=== PATIENT | male | born 1975 | race African-American/Black ===

== ENCOUNTER 2019-07-21 16:05 | Inpatient (IN) | payer MEDICAID ==
[~2019-07-21] VITALS: Ht 175.3 cm; Wt 78.6 kg
[2019-07-21 16:05] VITALS: BP 148/75
[2019-07-21] MEDS ORDERED: levETIRAcetam 500 MG in D5W 110 ML IV ONE (16:30)
[2019-07-21] MEDS ORDERED: LORazepam Inj 2mg/ml 1ml IV ONE (16:30)
--- NOTE | 2019-07-21 16:42 | Emergency Room Report ---
History of Present Illness General Chief Complaint: seizure Source: EMS Present Illness HPI Middle-aged unidentified male presents ED for evaluation. Per EMS patient had a witnessed seizure. Occurred on the bus today lasted for about 10 seconds. Witnessed. No tongue trauma. No incontinence. Upon arrival patient had another seizure witnessed by nursing. Patient is postictal and nonverbal on arrival. Patient has no identification. Unable to determine whether patient does have seizure history. No other aggravating relieving factors. No other associated symptoms Allergies: Coded Allergies: UNABLE TO ASSESS (Unverified , 07/21/19) Patient History Limited by: other Past Medical History: none Past Surgical History: none, unable to obtain Pertinent Family History: unable to obtain Social History: Denies: smoking, alcohol use, drug use Immunizations: other Reviewed Nursing Documentation: PMH: Agreed; PSxH: Agreed Nursing Documentation-PMH Past Medical History Deferred: Patient Unconscious Review of Systems All Other Systems: limited Physical Exam Vital Signs Date Time Temp Pulse Resp B/P (MAP) Pulse Ox O2 Delivery O2 Flow Rate FiO2 07/21/19 16:05 119 26 148/75 94 Non-Rebreather 10.0 Sp02 EP Interpretation: reviewed, normal General Appearance: lethargic, Postictal Head: normocephalic ENT: normal ENT inspection Neck: normal inspection Respiratory: chest non-tender, lungs clear, normal breath sounds, speaking full sentences Cardiovascular #1: tachycardia Gastrointestinal: normal inspection, no organomegaly Rectal: deferred Genitourinary: no CVA tenderness Musculoskeletal: normal inspection Neurologic: other - postictal Psychiatric: other - postictal Skin: other - see nrusing notes Lymphatic: normal inspection Medical Decision Making Diagnostic Impression: Primary Impression: Seizure Additional Impressions: Altered mental status Qualified Codes: R41.82 - Altered mental status, unspecified Substance abuse Renal insufficiency ER Course Hospital Course 62 something year old unidientifed male presents to ED status post seizure. Differential diagnosis includes- breakthrough seizure, alcohol abuse, noncompliance with medication Clinical course Patient placed on stretcher. Initial history and physical I ordered labs, IV fluids, EKG, ativan, CT brain Labs- no leukocytosis, hb/hct stable, Cr 1.5, ETOH< 3, UDS + cocaine EKG - NSR no acute ischemic changes interpreted by me CT Brain no acute process patient has no identification. Unclear whether patient does have an actual seizure history or this is related to substance abuse. Remains altered and postictal. Given loading dose of Keppra. Case discussed with Dr. Gregg and he agreed to accept the patient to his service for further care and support. i. I feel this is a highly complex case requiring extensive working including EKG/Rhythm strip, Xray/CT/US, Blood/urine lab work, repeat exams while in ED, and administration of strong opiates/narcotics for pain control, admission to hospital or close patient follow up. Diagnosis - seizure, AMS, substance abuse, renal insuffiicency admitted to telemetry in serious condition Labs Test 07/21/19 16:26 07/21/19 16:30 White Blood Count 7.6 K/UL (4.8-10.8) Red Blood Count 4.91 M/UL (4.70-6.10) Hemoglobin 15.1 G/DL (14.2-18.0) Hematocrit 46.3 % (42.0-52.0) Mean Corpuscular Volume 94 FL (80-99) Mean Corpuscular Hemoglobin 30.7 PG (27.0-31.0) Mean Corpuscular Hemoglobin Concent 32.5 G/DL (32.0-36.0) Red Cell Distribution Width 12.0 % (11.6-14.8) Platelet Count 332 K/UL (150-450) Mean Platelet Volume 6.8 FL (6.5-10.1) Neutrophils (%) (Auto) 62.2 % (45.0-75.0) Lymphocytes (%) (Auto) 23.0 % (20.0-45.0) Monocytes (%) (Auto) 11.4 % (1.0-10.0) Eosinophils (%) (Auto) 1.1 % (0.0-3.0) Basophils (%) (Auto) 2.4 % (0.0-2.0) Sodium Level 140 MMOL/L (136-145) Potassium Level 3.4 MMOL/L (3.5-5.1) Chloride Level 103 MMOL/L (98-107) Carbon Dioxide Level 13 MMOL/L (21-32) Anion Gap 25 mmol/L (5-15) Blood Urea Nitrogen 11 mg/dL (7-18) Creatinine 1.5 MG/DL (0.55-1.30) Estimat Glomerular Filtration Rate 57.8 mL/min (>60) Glucose Level 96 MG/DL (74-106) Calcium Level 9.9 MG/DL (8.5-10.1) Total Bilirubin 0.3 MG/DL (0.2-1.0) Aspartate Amino Transf (AST/SGOT) 33 U/L (15-37) Alanine Aminotransferase (ALT/SGPT) 22 U/L (12-78) Alkaline Phosphatase 136 U/L (46-116) Total Protein 9.4 G/DL (6.4-8.2) Albumin 3.8 G/DL (3.4-5.0) Globulin 5.6 g/dL Albumin/Globulin Ratio 0.7 (1.0-2.7) Salicylates Level 2.6 ug/mL (2.8-20) Acetaminophen Level < 2 MCG/ML (10-30) Phenytoin (Dilantin) Level 1.6 ug/mL (10-20) Valproic Acid (Depakene) Level < 3 MCG/ML (50-100) Carbamazepine (Tegretol) Level < 0.5 ug/mL (4.0-12.0) Phenobarbital Level < 1.0 ug/mL (15-40) Serum Alcohol < 3 mg/dL Urine Color Pale yellow Urine Appearance Clear Urine pH 5 (4.5-8.0) Urine Specific [place] 1.025 (1.005-1.035) Urine Protein 4+ (NEGATIVE) Urine Glucose (UA) Negative (NEGATIVE) Urine Ketones 2+ (NEGATIVE) Urine Blood 4+ (NEGATIVE) Urine Nitrite Negative (NEGATIVE) Urine Bilirubin Negative (NEGATIVE) Urine Urobilinogen Normal MG/DL (0.0-1.0) Urine Leukocyte Esterase Negative (NEGATIVE) Urine RBC 5-10 /HPF (0 - 0) Urine WBC 0-2 /HPF (0 - 0) Urine Squamous Epithelial Cells None /LPF (NONE/OCC) Urine Amorphous Sediment Moderate /LPF (NONE) Urine Bacteria Few /HPF (NONE) Urine Opiates Screen Negative (NEGATIVE) Urine Barbiturates Screen Negative (NEGATIVE) Phencyclidine (PCP) Screen Negative (NEGATIVE) Urine Amphetamines Screen Negative (NEGATIVE) Urine Benzodiazepines Screen Negative (NEGATIVE) Urine Cocaine Screen Positive (NEGATIVE) Urine Marijuana (THC) Screen Negative (NEGATIVE) EKG Diagnostic Results Rate: normal Rhythm: NSR ST Segments: no acute changes ASA given to the pt in ED: No Rhythm Strip Diag. Results EP Interpretation: yes Rhythm: NSR, no PVC's, no ectopy CT/MRI/US Diagnostic Results CT/MRI/US Diagnostic Results : Imaging Test Ordered: CT Head Impression Procedure: CT Head no Contrast Indications: Dizziness and seizures Technique: Spiral acquisitions obtained through the brain. Angled axial and coronal 5 x 5 mm slices were reconstructed. Total dose length product 1406 mGycm. CTDI vol(s) 6 mGy. Dose reduction achieved using automated exposure control Comparison: None. Findings: There is bilateral and anterior and inferior frontal encephalomalacia. There is also bilateral anterior temporal encephalomalacia. No acute intracranial hemorrhage or edema. No mass effect or midline shift. Normal size ventricles and extra axial CSF spaces. Normal doherty-white differentiation. Intact calvarium. Visualized orbits and sinuses are unremarkable. The mastoids are clear Impression: . 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
[2019-07-21 16:50] LABS: APPEARANCE,URINE CLEAR; BILIRUBIN, URINE NEGATIVE (NEGATIVE); COLOR,URINE PALE YELLOW; GLUCOSE, URINE (UA) NEGATIVE (NEGATIVE); KETONES,URINE 2+ (NEGATIVE); LEUKOCYTE ESTERASE ,URINE NEGATIVE (NEGATIVE); NITRITE,URINE NEGATIVE (NEGATIVE); PH,URINE 5 (4.5-8.0); PROTEIN,URINE 4+ (NEGATIVE); UROBILINOGEN,URINE NORMAL MG/DL (0.0-1.0)
[2019-07-21 16:59] LABS: ANION GAP 25 mmol/L (5-15); BLOOD UREA NITROGEN 11 mg/dL (7-18); CALCIUM 9.9 MG/DL (8.5-10.1); CARBON DIOXIDE 13 MMOL/L (21-32); CHLORIDE 103 MMOL/L (98-107); CREATININE 1.5 MG/DL (0.55-1.30); POTASSIUM 3.4 MMOL/L (3.5-5.1); SODIUM 140 MMOL/L (136-145)
--- NOTE | 2019-07-21 17:00 | NUR ---
ED Nurse Note: Pt. brought by RA 61 from bus due to seizure activity. no trauma noted. pt had a sz on the hallway for 10 sec. pt. attached to pvc monitor for continuous monitoring. sz precaution initiated. sz pads applied on both side rails. airway maintained. no trauma noted. pt. is confused/ disoriented. pt.
[2019-07-21 17:06] LABS: ALANINE AMINOTRANSFERASE 22 U/L (12-78); ALBUMIN 3.8 G/DL (3.4-5.0); ALBUMIN/GLOBULIN RATIO 0.7 (1.0-2.7); ALKALINE PHOSPHATASE 136 U/L (46-116); ASPARTATE AMINO TRANSFERASE 33 U/L (15-37); BILIRUBIN,TOTAL 0.3 MG/DL (0.2-1.0)
[2019-07-21 17:14] LABS: BASOPHILS % (AUTO) 2.4 % (0.0-2.0); EOSINOPHILS % (AUTO) 1.1 % (0.0-3.0); HEMATOCRIT 46.3 % (42.0-52.0); HEMOGLOBIN 15.1 G/DL (14.2-18.0); MEAN CORPUSCULAR VOLUME 94 FL (80-99); MONOCYTES % (AUTO) 11.4 % (1.0-10.0); NEUTROPHILS % (AUTO) 62.2 % (45.0-75.0); PLATELET COUNT 332 K/UL (150-450); RED BLOOD COUNT 4.91 M/UL (4.70-6.10); WHITE BLOOD COUNT 7.6 K/UL (4.8-10.8)
--- NOTE | 2019-07-21 17:15 | NUR ---
ED Nurse Note: pt transported to CT, keppra infusion is finished. pt does not appear to be in acute distress. pt taken on 10L of O2 with a non-rebreather mask
--- NOTE | 2019-07-21 17:34 | Diagnostic Imaging Report ---
Indications: Dizziness and seizures Technique: Spiral acquisitions obtained through the brain. Angled axial and coronal 5 x 5 mm slices were reconstructed. Total dose length product 1406 mGycm. CTDI vol(s) 6 mGy. Dose reduction achieved using automated exposure control Comparison: None. Findings: There is bilateral and anterior and inferior frontal encephalomalacia. There is also bilateral anterior temporal encephalomalacia. No acute intracranial hemorrhage or edema. No mass effect or midline shift. Normal size ventricles and extra axial CSF spaces. Normal doherty-white differentiation. Intact calvarium. Visualized orbits and sinuses are unremarkable. The mastoids are clear Impression: . 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
[2019-07-21 17:59] VITALS: BP 108/67
[2019-07-21] MEDS ORDERED: LORazepam Inj 2mg/ml 1ml IM PRN (18:00)
[2019-07-21] MEDS ORDERED: Phenytoin Susp 100mg/4ml ORAL SCH (18:15)
--- NOTE | 2019-07-21 18:15 | NUR ---
ED Nurse Note: report given to TINA Morrison
--- NOTE | 2019-07-21 18:35 | NUR ---
NURSE NOTES: Patient arrived from ER. Received report from TINA Osman. Patient is asleep, breathing even and unlabored. Patient responds to substernal chest rubs, otherwise asleep. Belonging checklist completed. Seizure precaution initiated. Bed in lowest position, locked, side rials x3 are up. Call light within reach. IV site on left hand patent and intact. applications analyst placed. Will be endorsed to police shift commander nurse.
[2019-07-21 19:01] VITALS: BP 125/75
--- NOTE | 2019-07-21 19:15 | NUR ---
HAND-OFF: Report given to TINA Vasquez and TINA Jolley.
--- NOTE | 2019-07-21 19:17 | NUR ---
NURSE NOTES: Patient asleep, responds to sternal rub and turning, not to voice. Patient's bilateral pupils pinpoint when light shined, 2 mm diameter. Patient unable to answer admission questions. No signs of distress or pain. Vital signs stable. Seizure precautions in place, siderails padded, siderails up x3, and suction at bedside. Skin intact, right scar on knee. Bed in lowest position, brakes on, bed alarm on, fall precautions implemented, and call light within reach. Will continue to monitor.
--- NOTE | 2019-07-21 19:30 | NUR ---
NURSE NOTES: Received patient from TINA Morrison. Patient was asleep in bed, no signs of pain or distress noted. IV site checked, patent and intact. Seizure precautions utilized, siderails padded and suction at bedside. Bed in lowest position, siderails up x2, brakes on, and call light within reach. Will continue with plan of care.
[2019-07-21 20:00] VITALS: BP 125/89
[2019-07-21] MEDS: Enoxaparin 40mg Inj SUBQ SCH (20:00)
--- NOTE | 2019-07-21 20:15 | NUR ---
NURSE NOTES: Endorsed to Dr. Gregg, patient is unable to swallow, asked for oral medications to change to IV. Patient was lethargic, pinpoint pupils, and was able to verbalize when turning. Per Dr. Gregg, will change order.
[2019-07-21] MEDS ORDERED: LORazepam Inj 2mg/ml 1ml IVP PRN (21:00)
--- NOTE | 2019-07-22 03:00 | History and Physical Report ---
DATE OF ADMISSION: 07/21/2019 REASON FOR ADMISSION: 1. Seizure. 2. Substance abuse. HISTORY OF PRESENT ILLNESS: The patient presented to emergency room for evaluation of post seizure. Witnessed. Occurred on the bus today and lasted for approximately 10 seconds. No trauma. The patient does not have any identification and is currently labeled Chuckie Sanders. Noted to be positive for cocaine. ALLERGIES: Unknown. PAST MEDICAL HISTORY: Unknown. SOCIAL HISTORY: Unknown. PAST SURGICAL HISTORY: Unknown. REVIEW OF SYSTEMS: Cannot obtain as the patient is postictal. LABORATORY DATA: Labs dated July 21, 2019, positive for cocaine. Sodium 140, potassium 3.4, creatinine 1.5. Hemoglobin 15.1, white cell count 7.6, and platelet count 332,000. PHYSICAL EXAMINATION: VITAL SIGNS: Blood pressure 125/75, respiratory rate 20, 100% oxygen saturation on room air, temperature 98, and pulse 100. GENERAL: The patient is somnolent, but arousable and agitated when aroused. HEENT: Extraocular muscles intact. No lymphadenopathy noted. CARDIOVASCULAR: S1, S2. No rubs or gallops. PULMONARY: Clear to auscultation bilaterally. No rales, rhonchi, or wheezes. ABDOMINAL: Soft, nontender. EXTREMITIES: No edema noted. ASSESSMENT AND PLAN: 1. Acute kidney injury. Creatinine 1.5 at this time, likely secondary to volume depletion. We will continue IV hydration. Recheck laboratories in the morning. 2. Seizure. The patient is currently postictal. Received antiseizure medications in the emergency room. The patient is somnolent, sleeping comfortably, but arousable. 3. Dehydration. We will continue IV fluids. 4. DVT prophylaxis with SCDs. The patient's seizures are most likely brought on by cocaine. Once cleared by Neurology, we will discharge the patient. Krishna Gregg MD DR: Brent JOB#: [id number] CC:
[2019-07-22 04:00] VITALS: BP 151/86
[2019-07-22 04:56] LABS: ANION GAP 9 mmol/L (5-15); BLOOD UREA NITROGEN 8 mg/dL (7-18); CALCIUM 8.8 MG/DL (8.5-10.1); CARBON DIOXIDE 24 MMOL/L (21-32); CHLORIDE 109 MMOL/L (98-107); CREATININE 0.8 MG/DL (0.55-1.30); POTASSIUM 4.2 MMOL/L (3.5-5.1); SODIUM 142 MMOL/L (136-145)
--- NOTE | 2019-07-22 07:36 | NUR ---
HAND-OFF: Report given to TINA Stephenson. Plan of care endorsed.
--- NOTE | 2019-07-22 07:46 | NUR ---
NURSE NOTES: Pt in bed in low position with bed alarm on, call light next to pt, pt Ox1 but is being resistive to care, IV intact and asymptomatic running NS@125hr, pt uses urinal, pt is at fall risk, hx of substance abuse, homeless, pt denies pain, eating breakfast at bedside, no s/s of distress or sob noted.
[2019-07-22 08:00] VITALS: BP 132/85
--- NOTE | 2019-07-22 08:21 | Nephrology Progress Note ---
Assessment/Plan Assessment/Plan: A/P 1) Seizure- likley due to cocaine - Neuro to evaluate and make reccs on anti sz medication 2) HTN- add norvasc 3) DVT prophylaxsis- lovenox Plan on DC once Neuro cleared and CM/SW addresses place Subjective Date patient seen: Jul 22, 2019 Time patient seen: 08:17 ROS Limited/Unobtainable: No Allergies: Coded Allergies: UNABLE TO ASSESS (Unverified , 07/21/19) Subjective Patient more awke this am. Ate his breakfast Objective Last 24 Hour Vital Signs Date Time Temp Pulse Resp B/P (MAP) Pulse Ox O2 Delivery O2 Flow Rate FiO2 07/22/19 04:00 97.7 83 20 151/86 (107) 93 07/22/19 04:00 82 07/22/19 00:00 85 07/21/19 22:21 Nasal Cannula 2.0 07/21/19 20:20 89 07/21/19 20:00 98.7 98 18 125/89 (101) 99 07/21/19 19:01 98.0 100 20 125/75 (92) 100 07/21/19 18:15 98.0 121 23 108/67 98 Room Air 10.0 07/21/19 17:59 98.0 121 23 108/67 98 Room Air 07/21/19 16:06 140 18 Room Air 10.0 07/21/19 16:06 140 18 147/71 (96) 98 Room Air 07/21/19 16:05 119 26 148/75 94 Non-Rebreather 10.0 Intake and Output 07/21/19 07/22/19 19:00 07:00 Intake Total 1185 ml Output Total 400 ml Balance 785 ml Intake IV Total 1185 ml Output Urine Total 400 ml # Voids 1 2 Laboratory Tests 07/21/19 16:26: White Blood Count 7.6, Red Blood Count 4.91, Hemoglobin 15.1, Hematocrit 46.3, Mean Corpuscular Volume 94, Mean Corpuscular Hemoglobin 30.7, Mean Corpuscular Hemoglobin Concent 32.5, Red Cell Distribution Width 12.0, Platelet Count 332, Mean Platelet Volume 6.8, Neutrophils (%) (Auto) 62.2, Lymphocytes (%) (Auto) 23.0, Monocytes (%) (Auto) 11.4H, Eosinophils (%) (Auto) 1.1, Basophils (%) ( Auto) 2.4H, Sodium Level 140, Potassium Level 3.4L, Chloride Level 103, Carbon Dioxide Level 13L, Anion Gap 25H, Blood Urea Nitrogen 11, Creatinine 1.5H, Estimat Glomerular Filtration Rate 57.8, Glucose Level 96, Calcium Level 9.9, Total Bilirubin 0.3, Aspartate Amino Transf (AST/SGOT) 33, Alanine Aminotransferase (ALT/SGPT) 22, Alkaline Phosphatase 136H, Total Protein 9.4H, Albumin 3.8, Globulin 5.6, Albumin/Globulin Ratio 0.7L, Salicylates Level 2.6L, Acetaminophen Level < 2L, Phenytoin (Dilantin) Level 1.6L, Valproic Acid ( Depakene) Level < 3L, Carbamazepine (Tegretol) Level < 0.5L, Phenobarbital Level < 1.0L, Serum Alcohol < 3 07/21/19 16:30: Urine Color Pale yellow, Urine Appearance Clear, Urine pH 5, Urine Specific [place] 1.025, Urine Protein 4+H, Urine Glucose (UA) Negative, Urine Ketones 2+H , Urine Blood 4+H, Urine Nitrite Negative, Urine Bilirubin Negative, Urine Urobilinogen Normal, Urine Leukocyte Esterase Negative, Urine RBC 5-10H, Urine WBC 0-2, Urine Squamous Epithelial Cells None, Urine Amorphous Sediment ModerateH, Urine Bacteria Few, Urine Opiates Screen Negative, Urine Barbiturates Screen Negative, Phencyclidine (PCP) Screen Negative, Urine Amphetamines Screen Negative, Urine Benzodiazepines Screen Negative, Urine Cocaine Screen PositiveH, Urine Marijuana (THC) Screen Negative 07/22/19 03:45: Sodium Level 142, Potassium Level 4.2, Chloride Level 109H, Carbon Dioxide Level 24, Anion Gap 9, Blood Urea Nitrogen 8, Creatinine 0.8, Estimat Glomerular Filtration Rate > 60, Glucose Level 83, Calcium Level 8.8 Height (Feet): 5 Height (Inches): 9.00 Weight (Pounds): 130 General Appearance: no apparent distress EENT: normal ENT inspection Neck: normal alignment, supple Cardiovascular: normal rate, regular rhythm Respiratory/Chest: lungs clear, normal breath sounds Abdomen: non tender, soft Edema: no edema noted Arm (L), no edema noted Arm (R), no edema noted Leg (L), no edema noted Leg (R), no edema noted Pedal (L), no edema noted Pedal (R), no edema noted Generalized Krishna Gregg MD Jul 22, 2019 08:21
--- NOTE | 2019-07-22 10:30 | NUR ---
Social Service Note SW met with patient to obtain identification, assess for homelessness and substance abuse. Patient opened eyes when SW introduced self. Patient has mumbled speech. Patient provided multiple names but the name he also provided nursing was Estuardo Ocampo. Patient would not provide date of , age or insurance information. Patient would not answer questions regarding substance abuse (positive drug screen for cocaine) or address homelessness. Patient requesting a sandwich and that is all he would speak about. SW informed nurse patient was hungry and a sandwich was ordered. Even when notified that a sandwich was ordered patient would not answer SW questions. SW will reassess and will continue to monitor.
[2019-07-22 12:00] VITALS: BP 118/75
--- NOTE | 2019-07-22 14:15 | Cardiology Report ---
APPROVED REPORT EKG Measurement Heart [id number] Sinus tachycardia Biatrial enlargement Left ventricular hypertrophy Junctional ST depression, probably normal Abnormal ECG
--- NOTE | 2019-07-22 15:03 | NUR ---
HEALTH SCIENCES DEPARTMENT CHAIRDIE DESIGNER 62 YO MALE BIBA FROM THE BUS TO ER CC SEIZURE ACTIVITY SI: INTRACTABLE SEIZURE T. 98.0 HR 121 RR 23 B/P ` K 3.4 ALK PHOS 136 DILANTIN LEVEL 1.6 URINE TOX+ COCAINE CT HEAD= NO ACUTE FINDINGS. OLD BILATERAL FRONTAL AND TEMPORAL ENCEPHALOMALACIA IS: KEPPRA IV IV BOLUS NS X 1 LITER ADMITTED TELE @ 1850 TELE STATUS DCP PENDING HOSPITAL STAY
[2019-07-22 15:46] VITALS: BP 133/77
--- NOTE | 2019-07-22 19:16 | NUR ---
HAND-OFF: Report given to TINA Vasquez. Plan of care endorsed.
--- NOTE | 2019-07-22 19:20 | NUR ---
NURSE NOTES: Received patient from TINA Stephenson. Patient resting in bed comfortably. No signs of distress or pain noted. Able to make needs known. IV site checked, intact and patent. Seizure precautions in place, padded siderails and suction at bedside. Bed in lowest position, siderails up x3, brakes on, bed alarm on, and call light within reach. Will continue plan of care.
[2019-07-22] MEDS: Enoxaparin 40mg Inj SUBQ SCH (20:00)
--- NOTE | 2019-07-23 07:30 | NUR ---
HAND-OFF: Report given to TINA Shah. Plan of care endorsed.
--- NOTE | 2019-07-23 07:48 | NUR ---
NURSE NOTES: Received patient from Mily WILDER. Patient resting in bed comfortably. No signs of distress or pain noted. Able to make needs known. IV site on LFA intact and patent. Seizure precautions in place, padded siderails and suction at bedside. Bed in lowest position, siderails up x3, brakes engaged for safety, bed alarm on, and call light within reach. Will continue with the plan of care.
[2019-07-23 08:00] VITALS: BP 130/82
[2019-07-23 09:00] VITALS: BP 121/84
--- NOTE | 2019-07-23 10:48 | Nephrology Progress Note ---
Assessment/Plan Assessment/Plan: A/P 1) Seizure- likley due to cocaine - Neuro to evaluate and make reccs on anti sz medication - will contyinue dilantin 2) HTN- added norvasc 3) DVT prophylaxsis- lovenox Plan on DC once Neuro cleared and CM/SW addresses placement Subjective Date patient seen: Jul 23, 2019 Time patient seen: 10:46 ROS Limited/Unobtainable: Yes Allergies: Coded Allergies: UNABLE TO ASSESS (Unverified , 07/21/19) Subjective Patient awake but choosing not to converse Objective Last 24 Hour Vital Signs Date Time Temp Pulse Resp B/P (MAP) Pulse Ox O2 Delivery O2 Flow Rate FiO2 07/23/19 08:24 69 130/65 07/23/19 08:00 97.8 69 18 130/82 (98) 95 07/23/19 04:00 54 07/23/19 00:00 67 07/22/19 21:00 Room Air 07/22/19 20:00 78 07/22/19 15:46 97.1 82 18 133/77 (95) 94 07/22/19 15:35 75 07/22/19 12:00 97.3 72 20 118/75 (89) 96 07/22/19 12:00 85 Intake and Output 07/22/19 07/23/19 19:00 07:00 Intake Total 925 ml 1705.833 ml Output Total 1500 ml 400 ml Balance -575 ml 1305.833 ml Intake Oral 800 ml 360 ml IV Total 125 ml 1345.833 ml Output Urine Total 1500 ml 400 ml Height (Feet): 5 Height (Inches): 9.00 Weight (Pounds): 173 General Appearance: no apparent distress, alert EENT: normal ENT inspection Neck: normal alignment, supple Cardiovascular: normal rate, regular rhythm Respiratory/Chest: lungs clear, normal breath sounds Abdomen: non tender, soft Edema: no edema noted Arm (L), no edema noted Arm (R), no edema noted Leg (L), no edema noted Leg (R), no edema noted Pedal (L), no edema noted Pedal (R), no edema noted Generalized Krishna Gregg MD Jul 23, 2019 10:47
[2019-07-23 12:00] VITALS: BP 121/84
[2019-07-23 16:00] VITALS: BP 124/84
--- NOTE | 2019-07-23 19:22 | NUR ---
CASE MANAGEMENT: REVIEW SI: INTRACTABLE SEIZURE T 97.2 HR 84 RR 18 BP 124/84 SAT 94% ROOM AIR IS: KEPPRA PO Q12HR NORVASC PO QD LOVENOX SUBQ Q24HR TELEMETRY UNIT STATUS DCP: PATIENT IS FROM HOME
--- NOTE | 2019-07-23 19:33 | NUR ---
HAND-OFF: Report given to Merrick RN's. Patient is in stable condition.
--- NOTE | 2019-07-23 19:35 | NUR ---
NURSE NOTES: Received patient from TINA Shah. Patient resting in bed, alert, and talkative. No signs of distress or pain noted. IV site checked, patent and intact, no signs of erythema, bleeding, or infiltration. Patient able to communicate needs. Patient is ambulatory with a steady gait. Seizure precautions in place, padded siderails and suction at bedside. Bed in lowest position, brakes on, siderails up x3, and call light within reach. Will continue with plan of care.
[2019-07-23 20:00] VITALS: BP 142/77
[2019-07-23] MEDS: Enoxaparin 40mg Inj SUBQ SCH (20:00)
--- NOTE | 2019-07-23 20:45 | NUR ---
TRANSFER TO FLOOR: Patient transferred to , per Dr. Gregg. Report given to Florence, RN. Belongings given to transferring RN, belongings list checked and signed with transferring RN and patient at bedside. Patient taken off tele box, tolerated well. Bed at lowest position, brakes on, side rails up x3, call light within reach. Plan of care endorsed.
[2019-07-23 21:00] VITALS: BP 140/80
--- NOTE | 2019-07-23 21:08 | NUR ---
NURSE NOTES: RECEIVED PATIENT FROM TINA HALL. PT WAS SAFELY TRANSFERRED TO UNIT VIA HOSPITAL BED. BELONGING LIST WAS REVIEWED AND SIGN WITH PATIENT AND RN. PATIENT IS AWAKE,AAOX2, ON ROOM AIR, NO ACUTE DISTRESS NOTED. SKIN IS INTACT. IV ON LEFT FA IS INTACT AND PATENT. URINAL AT BEDSIDE. BED IS LOCKED AND LOW, BED ALARMS ACTIVE, SIDE RAILS UPX2, AND CALL LIGHT IS WITHIN REACH. WILL CONTINUE TO MONITOR.
--- NOTE | 2019-07-23 21:19 | NUR ---
NURSE NOTES: PT RECEIVED KEPPRA 500 MG ON ANOTHER UNIT AT 2025 PRIOR TO TRANSFER TO THIS UNIT. KEPPRA 500 MG SHOWED UP AGAIN ON eMAR FOR 2099 WHEN ORDERS WAS TRANSFERRED. RN CONFIRMED WITH PHARMACY TO NON-ADMIN WITH REASON "GIVEN ON ANOTHER UNIT".
[2019-07-23] MEDS ORDERED: LORazepam Inj 2mg/ml 1ml IVP PRN (23:00)
[2019-07-24] VITALS: BP 121/68
[2019-07-24 04:00] VITALS: BP 122/66
--- NOTE | 2019-07-24 07:33 | NUR ---
HAND-OFF: REPORT GIVEN TO TINA CLOUD. ENDORSED PLAN OF CARE. PT IS IN STABLE CONDITION.
--- NOTE | 2019-07-24 07:36 | NUR ---
NURSE NOTES: PATIENT RECEIVED FROM CEDRIC, RN. PATIENT RECEIVED AWAKE AND ALERT, EATING BREAKFAST IN BED. PATIENT HAS LEFT FOREARM IV WHICH IS CLEAN DRY AND INTACT, SALINE LOCKED. PATIENT HAS PADDED SIDE RAILS FOR SEIZURE PRECAUTION. BED IS IN THE LOW AND LOCKED POSITION WITH CALL LIGHT WITHIN REACH, WILL CONTINUE TO MONITOR PATIENT.
[2019-07-24 09:00] VITALS: BP 122/66
--- NOTE | 2019-07-24 09:22 | NUR ---
NURSE NOTES: ASSESSED PATIENT BUT HE REFUSED TO TELL ME THE DATE/YEAR SAYING " I KNOW THE DATE BUT I DON'T NEED TO TELL YOU I KNOW IT" I ASSESSED LUNG SOUNDS AND HEART SOUNDS. PATIENT ALSO STATED HE WOULD "TAKE THE MEDICATIONS WHEN I AM READY" EXPLAINED THAT I COULD NOT LEAVE MEDICATIONS IN THE ROOM AND TOLD PATIENT TO USE THE CALL LIGHT WHEN READY. CAN ONLY KEEP MEDICATIONS FOR 30 MINUTES PER HOSPITAL POLICY, WILL TRY AGAIN WITHIN 30 MINUTES, OTHERWISE WILL WASTE MEDICATIONS PER POLICY.
--- NOTE | 2019-07-24 09:57 | NUR ---
NURSE NOTES: RE-ATTEMPTED TO ADMINISTER MORNING MEDICATIONS TO THE PATIENT. AGAIN HE TOLD ME TO "LEAVE THEM ON THE SIDE AND I WILL TAKE THEM WHEN I AM READY" I SAID WE CANNOT LEAVE MEDICATIONS AT BEDSIDE, THEN PATIENT GRABBED THE MEDICATION CUP FROM MY HAND WHICH RESULTED IN THE MEDICATIONS BEING SPILLED ON THE FLOOR. PATIENT STATED " I NEED THE ONE MEDICATION" I CLARIFIED THAT THIS MEDICATION WAS KEPPRA/LEVITIRECEM, TOLD PATIENT I WOULD WASTE THE MEDICATIONS THAT WERE ON THE FLOOR AND PULL ANOTHER KEPPRA.
--- NOTE | 2019-07-24 10:06 | NUR ---
NURSE NOTES: PULLED ANOTHER DOSE OF KEPPRA FROM THE PYSXUS AND ADMINISTERED TO PATIENT. CALLED PHARMACY TO LET THEM KNOW I PULLED AN ADDITIONAL DOSE OF KEPPRA AFTER WASTING THE FIRST DOSE PULLED.
--- NOTE | 2019-07-24 13:44 | Nephrology Progress Note ---
Assessment/Plan Assessment/Plan: A/P 1) Seizure- due to cocaine and medicine noncompliance - Neuro made reccs on anti sz medication will leave rx for keppra 2) HTN- added norvasc 3) DVT prophylaxsis- lovenox Plan on DC once Neuro cleared and CM/SW addresses placement Subjective Date patient seen: Jul 24, 2019 Time patient seen: 13:40 ROS Limited/Unobtainable: No Allergies: Coded Allergies: UNABLE TO ASSESS (Unverified , 07/21/19) Subjective Patient awake but choosing not to talk and has been eating well Objective Last 24 Hour Vital Signs Date Time Temp Pulse Resp B/P (MAP) Pulse Ox O2 Delivery O2 Flow Rate FiO2 07/24/19 09:00 90 122/66 07/24/19 09:00 Room Air 07/24/19 04:00 97.1 90 18 122/66 (84) 96 07/24/19 00:00 97.9 91 18 121/68 (85) 94 07/23/19 21:00 97.6 85 18 140/80 (100) 94 07/23/19 21:00 Room Air 07/23/19 20:00 99.0 91 18 142/77 (98) 96 07/23/19 16:00 97.2 84 18 124/84 (97) 94 07/23/19 16:00 84 Intake and Output 07/23/19 07/24/19 19:00 07:00 Intake Total 140 ml Output Total 600 ml Balance 140 ml -600 ml Intake Oral 140 ml Output Urine Total 600 ml # Voids 3 3 Height (Feet): 5 Height (Inches): 9.00 Weight (Pounds): 173 General Appearance: no apparent distress EENT: normal ENT inspection Neck: normal alignment, supple Cardiovascular: normal rate, regular rhythm Respiratory/Chest: lungs clear, normal breath sounds Abdomen: non tender, soft Edema: no edema noted Arm (L), no edema noted Arm (R), no edema noted Leg (L), no edema noted Leg (R), no edema noted Pedal (L), no edema noted Pedal (R), no edema noted Generalized Krishna Gregg MD Jul 24, 2019 13:44
--- NOTE | 2019-07-24 13:48 | Discharge Instructions ---
Discharge Instructions Discharge Instructions Services at Discharge: day care Diet: 2 GM sodium (low sodium) Resume Normal Activity?: Yes Activity: light activity Follow Up Orders Stop cocaine use Take your blood pressure and seziure medications For Congestive Heart Failure Reminder Report to your physician any weight gain of 5 pounds or more in one week. Krishna Gregg MD Jul 24, 2019 13:48
--- NOTE | 2019-07-24 14:11 | NUR ---
Social Service Note Patient continues to be non-receptive in answering questions. SW last seen patient 06/2018. At that time patient was vague in the length of time he was homeless. Patient previously lived with his Harpreet Gant [phone] whom he could no longer stay with due to substance abuse. Patient with positive drug screen for cocaine. Patient wasn't receptive to community care referrals or substance abuse resource centers. When inquiring about alf referrals patient replied not needed. Homeless check list to be completed. Prescriptions to be filled by [facility]. Patient denied mental health diagnosis on previous admission. Patient to be provided contracted clinic information: Dr. Raya [facility] [id number] [facility] [id number]
--- NOTE | 2019-07-24 14:25 | NUR ---
NURSE NOTES: NIGHT NURSE TOLD ME TO GET CLEARANCE FROM JAYDON BEFORE DISCHARGING PATIENT. REID PLACED DISCHARGE ORDER FOR PATIENT SO I CALLED AND SPOKE TO JAYDON TO SEE IF HE CLEARED THE PATIENT FOR DISCHARGE. DR INTERIANO EXPLAINED THAT HE DOES NOT KNOW WHO THAT PATIENT IS. ALSO NOTED THAT THERE ARE NO PROVIDER NOTES FROM JAYDON.
--- NOTE | 2019-07-24 19:10 | NUR ---
NURSE NOTES: PATIENT DISCHARGED FROM HOSPITAL, PATIENT LEFT ALERT, ORIENTED AND STABLE. IV REMOVED, NO HEMATOMA OR BLEEDING NOTED. PATIENT WAS DISCHARGED WITH 2 SANDWICHES, A NEW T-SHIRT, PANTS AND SOCKS. CALLED [facility] AND PROVIDED [facility] VOUCHER TO PATIENT. PATIENT WAS OFFERED PNEUMONIA AND FLU VACCINATIONS AT DISCHARGE BUT REFUSED. PATIENT SIGNED THE BELONGINGS LIST, DISCHARGE PAPERWORK AND HOMELESS PATIENT DISCHARGE CHECKLIST. PATIENT LEFT WITH MEDICATIONS PRESCRIBED BY THE DOCTOR. EXPLAINED TO PATIENT THE IMPORTANCE OF MAINTAINING KEPPRA REGIMENT FOR SEIZURES. EXPLAINED THAT PATIENT SHOULD MONITOR BLOOD PRESSURE BEFORE TAKING BLOOD PRESSURE MEDICATIONS PRESCRIBED. NURSE NOTES:
[2019-07-24] MEDS ORDERED: Enoxaparin 40mg Inj SUBQ SCH (20:00)
--- NOTE | 2019-07-25 11:18 | NUR ---
*-* INSURANCE *-* ALL CLINICALS AND REVIEWS HAVE BEEN FAXED TO: [facility] F: [phone]
--- NOTE | 2019-07-25 12:52 | Discharge Summary ---
Discharge Summary Discharge Summary _ DATE OF ADMISSION: 07/21/2019 DATE OF DISCHARGE: 07/24/2019 DISCHARGED BY: Dr. Gregg REASON FOR ADMISSION: 43 years old male brought to emergency department department by EMS for witnessed seizure. It occurred on the bus, was witnessed, and lasted about 10 seconds. No tongue trauma. No incontinence. Upon arrival to ED patient had another episode of seizure, witnessed by the nursing staff. Patient was postictal and nonverbal on arrival. Patient had no identification. Upon evaluation patient was tachycardic, tachypneic, and initially required 100% nonrebreathing mask. Laboratory work-up revealed no leukocytosis . stable hemoglobin and hematocrit. Stable platelet count. Potassium 3.4. BUN 11, creatinine 1.5. Stable LFT. Dilantin , Depakote, Tegretol l and phenobarbital levels were all subtherapeutic . Serum alcohol , salicylates and Tylenol levels negative. Urinalysis revealed no evidence of urinary tract infection. Urine toxicology screen was positive for cocaine. EKG revealed normal sinus rhythm , no acute ischemic changes. 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 No acute intracranial bleeding or mass-effect. In emergency department patient was loaded with Keppra and admitted for further management. HOSPITAL COURSE: Patient admitted and started on IV fluids. Renal parameters and electrolytes were closely monitored. Electrolytes corrected as needed. Seizure precaution maintained. Patient started on Keppra. Anxiolytic were on board as needed for breakthrough seizure. No further seizure activity while in the hospital. DVT prophylaxis with SCD provided. Blood pressure was managed with calcium channel josh. GI prophylaxis provided. Patient clinically stabilized. Potassium stable after replacement-4.2 . BUN 8 , creatinine 0.8; acute kidney injury resolved , likely was due to dehydration. Patient was counseled on abstinence from illicit street drugs. workers compensation coordinator met with patient. Patient was not receptive to community care referrals or substance abuse resource centers. Prescription was filled by [facility] pharmacy. Patient was provided with a contracted clinic information. Patient was assessed and was medically stable for discharge to outpatient disposition. FINAL DIAGNOSES: Acute kidney injury- resolved Seizure episode Dehydration Cocaine abuse Hypertension DISCHARGE MEDICATIONS: List of medication provided to patient DISCHARGE INSTRUCTIONS: Patient was discharged home. Follow up with contracted clinic in one week. I have been assigned to dictate discharge summary for this account. I was not involved in the patient's management. Alexus Grier NP Jul 25, 2019 12:52
== END 2019-07-24 18:55 | disposition home or self-care (01) | DRG 53 ==
LOC: EDBD 16:05 → EMR 16:39 → EDBD 16:53 → 2E 16:53 → EDBEDREQ 17:53 → 2E 07-22 10:57 → 4E 07-23 20:40
DX: G40.89 Other seizures (principal); N17.9 Acute kidney failure, unspecified; E86.0 Dehydration; F14.10 Cocaine abuse, uncomplicated; I10 Essential (primary) hypertension; Z59.0 Homelessness
CPT/HCPCS: 36415; 70450; 80048; 80053; 80156; 80164; 80184; 80185; 80299; 80307; 80329; 81003; 82962; 85025; 93005; 96361; 96374; 96375; 99285